=== PATIENT | male | born 1985 | race African-American/Black ===

== ENCOUNTER 2019-02-17 11:18 | Observation (INO) | payer OTHER, SELFPAY ==
[~2019-02-17] VITALS: Ht 162.6 cm; Wt 54.5 kg
[2019-02-17 11:59] LABS: BASO % 0.3 % (0.0-1.0); HEMATOCRIT 47.6 % (42.0-52.0); HEMOGLOBIN 16.5 g/dl (13.5-17.5); LYMPH # 0.9 10^3/uL (1.5-4.5); LYMPH % 7.8 % (24.0-44.0); MEAN CORPUSCULAR HEMOGLOBIN 28.5 pg (27.0-33.0); MEAN CORPUSCULAR HGB CONC 34.7 g/dl (32.0-36.5); MEAN CORPUSCULAR VOLUME 82.4 fl (80.0-96.0); MONO # 0.8 10^3/uL (0.0-0.8); MONO % 7.2 % (0.0-5.0); NEUTROPHILS # 9.8 10^3/uL (1.8-7.7); NEUTROPHILS % 84.4 % (36.0-66.0); PLATELET COUNT, AUTOMATED 170 10^3/uL (150-450); RED BLOOD COUNT 5.78 10^6/uL (4.30-6.10); WHITE BLOOD COUNT 11.6 10^3/uL (4.0-10.0)
[2019-02-17 12:32] LABS: BLOOD UREA NITROGEN 25 MG/DL (7-18); CALCIUM LEVEL 9.3 MG/DL (8.5-10.1); CARBON DIOXIDE LEVEL 23 MEQ/L (21-32); CHLORIDE LEVEL 103 MEQ/L (98-107); CREATININE FOR GFR 1.09 MG/DL (0.70-1.30); GLOMERULAR FILTRATION RATE > 60.0 (>60); GLUCOSE, FASTING 76 MG/DL (70-100); POTASSIUM SERUM 4.8 MEQ/L (3.5-5.1); SODIUM LEVEL 138 MEQ/L (136-145); THYROID STIMULATING HORMONE < 0.005 uIU/ML (0.358-3.740)
[2019-02-17] MEDS ORDERED: NS 1,000 ML IV ONE ×2 (13:15→14:45)
[2019-02-17 14:13] LABS: ALBUMIN 4.3 GM/DL (3.2-5.2); ALT/SGPT 57 U/L (12-78); BILIRUBIN,DIRECT < 0.1 MG/DL (0.0-0.2); BILIRUBIN,TOTAL 0.6 MG/DL (0.2-1.0); CK-MB VALUE MASS 9.6 NG/ML (<3.6); CPK CREATINE PHOSPHOKINASE 1308 U/L (39-308); MB/CK RELATIVE INDEX 0.73 (< OR =4); TOTAL PROTEIN 7.1 GM/DL (6.4-8.2); TROPONIN I 0.37 NG/ML (< 0.10)
--- NOTE | 2019-02-17 16:22 | HPEPDOC ---
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 He was on a long rome today sweating profusely and he at the end of September he began after he stopped began having se cat cramps in his bilateral legs. He climbed into the truck and while doing so began having cramping in his arm as well. While sitting in the truck continued to begin to feel clammy and lightheaded unwell at which point he laid flat in the truck. The patient denies any associated chest pressure shortness of breath. He tells me that he had difficulty staying awake and that his peers were keeping him aroused and lasted approximately 1-2 minutes before he began to feel back to his normal self. His cramping did pass. He tells me he had a similar episode in August 2014 while doing crawls for 3 days in a row, at that time he had a nelsy syncopal episode and was told he had rhabdomyolysis as well. He was never told any other reason why he passed out or further details to the reason for his hospitalization near [place].. Otherwise patient denies weight loss, hair loss, headache, visual changes, chest pain, shortness of breath, cough, vomiting, diarrhea, abdominal pain, worsening arthritis, change in mood. PAST MEDICAL HISTORY: 1. One syncopal episode in the past as outlined above . HOME MEDICATIONS: Please see below. ALLERGIES: Please see below PAST SURGICAL HISTORY: None. SOCIAL HISTORY: Lives with: Alone, Employment: Mailman active duty, Tobacco use: Denies. ETOH: Rare last drink 2 weeks ago, Illicit drug use: Denies, Tattoos done unprofessionally: Denies, CODE STATUS: Full code FAMILY HISTORY:Reviewed and noncontributory no family history of sudden cardiac patient is unaware of any significant family medical history of illness in his parents or siblings REVIEW OF SYSTEMS: 10 systems reviewed and negative other than HPI PHYSICAL EXAMINATION: VITAL SIGNS: Temperature 97.2, pulse 71, respiratory rate 18, blood pressure 115/68, pulse oximetry 97 % on room air. GENERAL: Pleasant very slim young man sitting up in bed awake alert oriented speaking in complete sentences no acute distress HEENT: Mildly dry mucous membranes no elevation and CVP CARDIOVASCULAR: S1 S2 regular no additional heart sounds appreciated. He does not appear to be tachycardic RESPIRATORY: Clear to auscultation bilaterally. ABDOMINAL: Bowel sounds present abdomen soft and nontender even to deep palpation EXTREMITIES: No clubbing cyanosis or edema he is muscular but very slim and somewhat wasted NEUROLOGICAL: Spontaneously moves all 4 extremities cranial 2 through 12 grossly intact no gross focal deficits appreciated PSYCHOLOGICAL: Appropriate LABORATORY DATA: See below. MICROBIOLOGY: Please see below. IMAGING: None EKG: Normal sinus rhythm, possibly some early repolarization no concerning ST changes ASSESSMENT & PLAN: This is a 33-year-old man with in episode of near syncope. PROBLEMS: 1. Near syncope: Appears to be directly related to his extreme physical exertion during his September as well as cramping muscles. I'll check an elective lites continue with IV fluid rehydration and admitted to remote telemetry for monitoring. We will check orthostatics. He has a very mild elevation in his CK my concern for rhabdomyolysis is quite low we will trend his CK in the morning. 2. Abnormal troponin: The etiology is not immediately clear he does not have chest pain or pressure symptoms, he does not have concerning EKG changes. However he is had 2 episodes of syncope or near syncope with exertion I will order an echocardiogram repeat an EKG cycle his troponin in this area and. 3. Abnormal AST: Could potentially be related to his elevated CK we'll recheck in the a.m. and as a mild elevation 4. Possible hyperthyroidism: I will recheck a stat drawn sure this is not a lab error he is certainly quite slim he is not tachycardic or appear to be overtly exophthalmic. We'll check a free T3-T4 as well and decide further workup based on results 5. Leukocytosis: Likely reactive recheck in a.m. DVT PROPHYLAXIS: Compression stockings DISPOSITION: Admitted observation status with telemetry Vital Signs Vital Signs Date Time Temp Pulse Resp B/P (MAP) Pulse Ox O2 Delivery O2 Flow Rate FiO2 02/17/19 15:03 96 18 100 Room Air 02/17/19 15:00 119/75 (90) 02/17/19 11:22 97.2 Laboratory Data Labs 24H Laboratory Tests 2 02/17/19 11:48: Immature Granulocyte % (Auto) 0.3, White Blood Count 11.6H, Red Blood Count 5.78, Hemoglobin 16.5, Hematocrit 47.6, Mean Corpuscular Volume 82.4, Mean Corpuscular Hemoglobin 28.5, Mean Corpuscular Hemoglobin Concent 34.7, Red Cell Distribution Width 12.0, Platelet Count 170, Neutrophils (%) (Auto) 84.4H, Lymphocytes (%) (Auto) 7.8L, Monocytes (%) (Auto) 7.2H, Eosinophils (%) (Auto) 0.0, Basophils (%) (Auto) 0.3, Neutrophils # (Auto) 9.8H, Lymphocytes # (Auto) 0.9L, Monocytes # (Auto) 0.8, Eosinophils # (Auto) 0.0, Basophils # (Auto) 0.0, Nucleated Red Blood Cells % (auto) 0.0, Anion Gap 12, Glomerular Filtration Rate > 60.0, Calcium Level 9.3, Aspartate Amino Transf (AST/SGOT) 71H, Alanine Aminotransferase (ALT/SGPT) 57, Alkaline Phosphatase 136H, Total Bilirubin 0.6, Direct Bilirubin < 0.1, Total Creatine Kinase 1308H, Creatine Kinase MB 9.6H, Creatine Kinase MB Relative Index 0.73, Troponin I 0.37H, Total Protein 7.1, Albumin 4.3, Albumin/Globulin Ratio 1.54, Thyroid Stimulating Hormone (TSH) < 0.005L 02/17/19 12:01: Bedside Glucose (Misc Panel) 82 CBC/BMP Laboratory Tests 02/17/19 11:48 Red Blood Count 5.78, Mean Corpuscular Volume 82.4, Mean Corpuscular Hemoglobin 28.5, Mean Corpuscular Hemoglobin Concent 34.7, Red Cell Distribution Width 12.0, Neutrophils (%) (Auto) 84.4 H, Lymphocytes (%) (Auto) 7.8 L, Monocytes (%) (Auto) 7.2 H, Eosinophils (%) (Auto) 0.0, Basophils (%) (Auto) 0.3, Neutrophils # (Auto) 9.8 H, Lymphocytes # (Auto) 0.9 L, Monocytes # (Auto) 0.8, Eosinophils # (Auto) 0.0, Basophils # (Auto) 0.0 Home Medications No Active Prescriptions or Reported Meds Allergies Coded Allergies: No Known Allergies (Verified Allergy, Unknown, 02/17/19) A-FIB/CHADSVASC A-FIB History Current/History of A-Fib/PAF?: No CLAUDIA OROZCO MD Feb 17, 2019 16:22
[2019-02-17 16:30] VITALS: BP 133/61
[2019-02-17] MEDS ORDERED: ACETAMINOPHEN TAB 650MG DOSE (2X325MG) PO PRN (17:00)
[2019-02-17 18:16] LABS: ETHYL ALCOHOL (ETHANOL) < 0.003 % (0.000-0.010); FREE T4 1.96 NG/DL (0.76-1.46); MAGNESIUM LEVEL 2.2 MG/DL (1.8-2.4); PHOSPHORUS LEVEL 3.4 MG/DL (2.5-4.9); THYROID STIMULATING HORMONE < 0.005 uIU/ML (0.358-3.740); TROPONIN I 0.58 NG/ML (< 0.10)
--- NOTE | 2019-02-17 21:29 | ECGEPIP ---
[facility] - ED Test Date: 2019-02-17 Pat Name: DEWEY CÁRDENAS Department: Room: - Gender: Male Shank Rander: : 1985 Requested By: Antione Bernard Order Number: [id number] Reading MD: Kia Long Measurements Intervals [place] Rate: 77 P: 70 [place]: 174 QRS: 86 QRSD: 89 T: 68 QT: 376 QTc: 426 Interpretive Statements SINUS RHYTHM NONSPECIFIC ST ELEVATION, CLINICAL CORRELATION NO PRIOR Electronically Signed on 02-17-2019 21:29:01 EDT by Kia Long
[2019-02-17 22:00] VITALS: BP_SYST 110; BP_SYST 118; BP_SYST 123; BP_SYST 128; BP_DIAS 58; BP_DIAS 60; BP_DIAS 64
[2019-02-18 06:00] VITALS: BP_SYST 109; BP_SYST 110; BP_SYST 113; BP_SYST 118; BP_DIAS 58; BP_DIAS 66; BP_DIAS 67; BP_DIAS 89
[2019-02-18 06:27] LABS: HEMATOCRIT 42.5 % (42.0-52.0); HEMOGLOBIN 14.7 g/dl (13.5-17.5); MEAN CORPUSCULAR HEMOGLOBIN 28.2 pg (27.0-33.0); MEAN CORPUSCULAR HGB CONC 34.6 g/dl (32.0-36.5); MEAN CORPUSCULAR VOLUME 81.6 fl (80.0-96.0); PLATELET COUNT, AUTOMATED 166 10^3/uL (150-450); RED BLOOD COUNT 5.21 10^6/uL (4.30-6.10)
[2019-02-18 07:14] LABS: ALBUMIN 3.4 GM/DL (3.2-5.2); ALT/SGPT 50 U/L (12-78); BILIRUBIN,DIRECT 0.2 MG/DL (0.0-0.2); BILIRUBIN,TOTAL 0.6 MG/DL (0.2-1.0); BLOOD UREA NITROGEN 19 MG/DL (7-18); CALCIUM LEVEL 8.4 MG/DL (8.5-10.1); CARBON DIOXIDE LEVEL 26 MEQ/L (21-32); CHLORIDE LEVEL 113 MEQ/L (98-107); CPK CREATINE PHOSPHOKINASE 2310 U/L (39-308); CREATININE FOR GFR 0.68 MG/DL (0.70-1.30); GLOMERULAR FILTRATION RATE > 60.0 (>60); GLUCOSE, FASTING 89 MG/DL (70-100); POTASSIUM SERUM 3.9 MEQ/L (3.5-5.1); SODIUM LEVEL 144 MEQ/L (136-145); TROPONIN I 0.39 NG/ML (< 0.10)
--- NOTE | 2019-02-18 07:55 | ECGEPIP ---
[facility] Test Date: 2019-02-17 Pat Name: DEWEY CÁRDENAS Department: Room: [place] [address] Gender: Male [employer]: ES : 1985 Requested By: CLAUDIA OROZCO Order Number: [id number] Reading MD: Oscar Hurd Measurements Intervals [place] Rate: 82 P: 53 ND: 152 QRS: 89 QRSD: 88 T: 69 QT: 365 QTc: 428 Interpretive Statements SINUS RHYTHM NO CHANGE COMPARED TO 11:55 SAME DAY Electronically Signed on 02-18-2019 7:54:42 EDT by Oscar Hurd
--- NOTE | 2019-02-18 08:10 | ECHO ---
DATE OF STUDY: 02/17/2019 REFERRING PHYSICIAN: Dr. Lillian Barron INDICATION: Syncope. HEIGHT: 162 cm. WEIGHT: 55 kg. DIMENSIONS: IVS: 1.1 LV: 4.2 LVPW: 0.9 LA: 31. Aorta: 2.9 IVC: 1.7 Mitral E wave velocity: 110 A wave: 73 E prime septal: 11 E prime lateral: 18.5 FINDINGS: The study is of excellent technical quality. The patient is in sinus rhythm with narrow QRS complex. Left ventricle is of normal size and systolic function with estimated left ventricular ejection fraction (LVEF) around 65%. No segmental wall motion abnormalities are appreciated. Right ventricle is also normal size and systolic function. Both atria appear normal. All four cardiac valves were well seen and appear normal. No pericardial effusion is noted. Inferior vena cava is of normal size and appropriately collapses with respiration. Aortic root, aortic arch and visualized segment of abdominal aorta all appear normal. Doppler interrogation reveals no aortic stenosis or insufficiency. There is also functionally competent mitral and pulmonic valve. There is trace tricuspid insufficiency. Calculated pulmonary artery pressure is on upper limits of normal values or possibly even mildly elevated. Mitral inflow pattern and tissue Doppler imaging of mitral annulus reveal normal diastolic function of left ventricle. CONCLUSIONS: 1. Study is of excellent technical quality. 2. Normal LV size with normal LV systolic and diastolic function. 3. No significant valvular disease. 4. Normal central venous pressure. 5. Normal or possibly minimally elevated pulmonary artery pressure. COMMENT: Subacute bacterial endocarditis (SBE) prophylaxis is not recommended. Essentially normal echocardiogram. No findings to explain syncopal event.
[2019-02-18 14:08] VITALS: BP_SYST 116; BP_SYST 117; BP_SYST 124; BP_DIAS 59; BP_DIAS 71; BP_DIAS 72
--- NOTE | 2019-02-18 17:16 | IPNPDOC ---
Date Seen The patient was seen on 02/18/19. Progress Note SUBJECTIVE: Patient is a 33-year-old man with in episode of near syncope. She was seen and examined this morning at bedside. He has no complaints. States the cramping in his lower extremities have resolved. He is ambulating well around the room with no problems. Urine output has been adequate. He's noticed that the color has improved to more yellow and clear in color. He is tolerating his meals well. He has no complaints this morning. He denies having any thyroid disease in his family. Continues to deny chest pain, shortness of breath, trouble breathing, diarrhea, abdominal pain, nausea, vomiting, or worsening muscle weakness. OBJECTIVE PHYSICAL EXAMINATION: VITAL SIGNS: Please see below. GENERAL: 38 year old Pleasant very slim young man sitting up in bed awake alert oriented speaking in complete sentences no acute distress HEENT: moist mucous membranes NO JVD CARDIOVASCULAR: S1 S2 regular no additional heart sounds appreciated. RESPIRATORY: Clear to auscultation bilaterally. ABDOMINAL: Bowel sounds present abdomen soft and nontender EXTREMITIES: No clubbing cyanosis or edema he is muscular but very slim NEUROLOGICAL: no gross focal deficits appreciated PSYCHOLOGICAL: Appropriate LABORATORY DATA, IMAGING STUDIES, MICROBIOLOGY: Please see below. Echocardiogram: 02/17/2019 - Oscar Hurd MD CONCLUSIONS: 1. Study is of excellent technical quality. 2. Normal LV size with normal LV systolic and diastolic function. 3. No significant valvular disease. 4. Normal central venous pressure. 5. Normal or possibly minimally elevated pulmonary artery pressure. DVT prophylaxis ordered?: YES ASSESSMENT AND PLAN: This is a 33-year-old man with in episode of near syncope. PROBLEMS Elevated Creatine Kinase 2/2 related to extreme physical exertion during his September -Status post 3 L IV fluids -LE cramped resolved -encouraged good PO intake -trend CK, Hyperthyroidism -TSH<0.005, -not tachycardic or appear to be overtly exophthalmic -thyroid uptake scan ordered in the AM Near syncope: -2/2 related to extreme physical exertion during his September -orthostatics negative -Status post 3 L IV fluids Abnormal troponin -no have concerning EKG changes. -2 episodes of syncope or near syncope with exertion -echocardiogram- wNL Abnormal AST -Could potentially be related to his elevated CK -downtrending -monitor in the AM Reactive Leukocytosis - resolved DVT PROPHYLAXIS: Compression stockings DISPOSITION: pending radiouptake scan, possible DC in 24-48 hours VS, I&O, 24H, [place]is Vital Signs/I&O Vital Signs Date Time Temp Pulse Resp B/P (MAP) Pulse Ox O2 Delivery O2 Flow Rate FiO2 02/18/19 14:08 72 116/59 (78) 80 117/71 (86) 89 124/72 (89) 02/18/19 08:00 16 02/18/19 06:00 97.6 100 02/17/19 16:09 Room Air I&O- Last 24 Hours up to 6 AM 02/18/19 06:00 Intake Total 3750 ml Balance 3750 ml Laboratory Data 24H LABS Laboratory Tests 2 02/17/19 17:11: Phosphorus Level 3.4, Magnesium Level 2.2, Troponin I 0.58#H, Thyroid Stimulating Hormone (TSH) < 0.005L, Free Thyroxine 1.96H, Free Triiodothyronine 6.0H, Ethyl Alcohol Level < 0.003 02/18/19 05:53: Troponin I 0.39#H, Nucleated Red Blood Cells % (auto) 0.0, Anion Gap 5L, Glomeru lar Filtration Rate > 60.0, Calcium Level 8.4L, Aspartate Amino Transf (AST/SGOT) 55H, Alanine Aminotransferase (ALT/SGPT) 50, Alkaline Phosphatase 113, Total Bilirubin 0.6, Direct Bilirubin 0.2, Total Creatine Kinase 2310#H, Total Protein 6.0L, Albumin 3.4#, Albumin/Globulin Ratio 1.31 CBC/BMP Laboratory Tests 02/18/19 05:53 Red Blood Count 5.21, Mean Corpuscular Volume 81.6, Mean Corpuscular Hemoglobin 28.2, Mean Corpuscular Hemoglobin Concent 34.6, Red Cell Distribution Width 12.3 EMI CORTEZ DO Feb 18, 2019 17:16
[2019-02-18 22:00] VITALS: BP 140/60
[2019-02-19 06:00] VITALS: BP 121/68
[2019-02-19 06:26] LABS: MEAN CORPUSCULAR HEMOGLOBIN 28.6 pg (27.0-33.0); MEAN CORPUSCULAR HGB CONC 34.9 g/dl (32.0-36.5); MEAN CORPUSCULAR VOLUME 82.1 fl (80.0-96.0); PLATELET COUNT, AUTOMATED 150 10^3/uL (150-450); RED BLOOD COUNT 5.24 10^6/uL (4.30-6.10); WHITE BLOOD COUNT 4.5 10^3/uL (4.0-10.0)
[2019-02-19 06:55] LABS: ALBUMIN 3.3 GM/DL (3.2-5.2); ALT/SGPT 65 U/L (12-78); BILIRUBIN,DIRECT 0.2 MG/DL (0.0-0.2); BILIRUBIN,TOTAL 0.6 MG/DL (0.2-1.0); BLOOD UREA NITROGEN 16 MG/DL (7-18); CALCIUM LEVEL 8.7 MG/DL (8.5-10.1); CARBON DIOXIDE LEVEL 26 MEQ/L (21-32); CHLORIDE LEVEL 111 MEQ/L (98-107); GLOMERULAR FILTRATION RATE > 60.0 (>60); GLUCOSE, FASTING 92 MG/DL (70-100); POTASSIUM SERUM 3.9 MEQ/L (3.5-5.1); SODIUM LEVEL 143 MEQ/L (136-145); TOTAL PROTEIN 6.3 GM/DL (6.4-8.2)
[2019-02-19 14:00] VITALS: BP 124/67
--- NOTE | 2019-02-19 15:42 | IPNPDOC ---
Date Seen The patient was seen on 02/19/19. Progress Note SUBJECTIVE: Patient is a 33-year-old man with in episode of near syncope. She was seen and examined this morning at bedside. He has no complaints. States the cramping in his lower extremities have resolved. He is ambulating well around the room with no problems. Urine output and he needs to be adequate. this am, took the medication for thyroid scan which will be done tomorrow am. Continues to deny chest pain, shortness of breath, trouble breathing, diarrhea, abdominal pain, nausea, vomiting, or worsening muscle weakness. OBJECTIVE PHYSICAL EXAMINATION: VITAL SIGNS: Please see below. GENERAL: 33 year old Pleasant very slim young man sitting up in bed awake alert oriented speaking in complete sentences no acute distress HEENT: moist mucous membranes NO JVD CARDIOVASCULAR: S1 S2 regular no additional heart sounds appreciated. RESPIRATORY: Clear to auscultation bilaterally. ABDOMINAL: Bowel sounds present abdomen soft and nontender EXTREMITIES: No clubbing cyanosis or edema he is muscular but very slim NEUROLOGICAL: no gross focal deficits appreciated PSYCHOLOGICAL: Appropriate LABORATORY DATA, IMAGING STUDIES, MICROBIOLOGY: Please see below. Echocardiogram: 02/17/2019 - Oscar Hurd MD CONCLUSIONS: 1. Study is of excellent technical quality. 2. Normal LV size with normal LV systolic and diastolic function. 3. No significant valvular disease. 4. Normal central venous pressure. 5. Normal or possibly minimally elevated pulmonary artery pressure. DVT prophylaxis ordered?: YES ASSESSMENT AND PLAN: This is a 33-year-old man with in episode of near syncope. PROBLEMS Elevated Creatine Kinase 2/2 related to extreme physical exertion during his September -Status post 3 L IV fluids -LE cramped resolved -encouraged good PO intake Hyperthyroidism -TSH<0.005, -not tachycardic or appear to be overtly exophthalmic -thyroid uptake scan in the AM Near syncope: -2/2 related to extreme physical exertion during his September -orthostatics negative -Status post 3 L IV fluids Abnormal troponin -no have concerning EKG changes. -2 episodes of syncope or near syncope with exertion -echocardiogram- wNL Abnormal AST -Could potentially be related to his elevated CK / rhabdomyolysis -downtrending -monitor in the AM Reactive Leukocytosis - resolved DVT PROPHYLAXIS: Compression stockings DISPOSITION: pending radiouptake scan, possible DC in 24-48 hours VS, I&O, 24H, Fishbone Vital Signs/I&O Vital Signs Date Time Temp Pulse Resp B/P (MAP) Pulse Ox O2 Delivery O2 Flow Rate FiO2 02/19/19 14:00 98.0 78 18 124/67 (86) 99 02/17/19 16:09 Room Air I&O- Last 24 Hours up to 6 AM 02/19/19 06:00 Intake Total 1560 ml Output Total 0 ml Balance 1560 ml Laboratory Data 24H LABS Laboratory Tests 2 02/19/19 05:49: Nucleated Red Blood Cells % (auto) 0.0, Anion Gap 6L, Glomerular Filtration Rate > 60.0, Calcium Level 8.7, Aspartate Amino Transf (AST/SGOT) 52H, Alanine Aminotransferase (ALT/SGPT) 65, Alkaline Phosphatase 111, Total Bilirubin 0.6, Direct Bilirubin 0.2, Total Protein 6.3L, Albumin 3.3, Albumin/Globulin Ratio 1.10 CBC/BMP Laboratory Tests 02/19/19 05:49 Red Blood Count 5.24, Mean Corpuscular Volume 82.1, Mean Corpuscular Hemoglobin 28.6, Mean Corpuscular Hemoglobin Concent 34.9, Red Cell Distribution Width 12.1 GME ATTESTATION GME ATTESTATION My faculty preceptor for this patient encounter was physically present during t he encounter and was fully available. All aspects of the patient interview, examination, medical decision making process, and medical care plan development were reviewed and approved by the faculty preceptor. The faculty preceptor is aware and concurs with the plan as stated in the body of this note and will attest to such by his/her cosignature. ATTENDING NOTE I, Ioana Freed, have independently examined this patient and performed my own physical exam, as well as reviewed the documentation and edited where necessary. I have discussed in detail with the resident / student the findings and plan of treatment as documented by the resident / student and edited their note. I agree with their findings and treatment plan and have edited their documentation. I will continue to follow the patient during this hospital stay. EMI CORTEZ DO Feb 19, 2019 15:42 IOANA FREED MD Feb 19, 2019 16:36
[2019-02-19 22:00] VITALS: BP 129/68
[2019-02-20 06:00] VITALS: BP 133/83
[2019-02-20 06:19] LABS: HEMATOCRIT 45.4 % (42.0-52.0); HEMOGLOBIN 15.8 g/dl (13.5-17.5); MEAN CORPUSCULAR HEMOGLOBIN 28.3 pg (27.0-33.0); MEAN CORPUSCULAR HGB CONC 34.8 g/dl (32.0-36.5); MEAN CORPUSCULAR VOLUME 81.2 fl (80.0-96.0); PLATELET COUNT, AUTOMATED 169 10^3/uL (150-450); RED BLOOD COUNT 5.59 10^6/uL (4.30-6.10); WHITE BLOOD COUNT 5.1 10^3/uL (4.0-10.0)
[2019-02-20 06:43] LABS: BLOOD UREA NITROGEN 13 MG/DL (7-18); CALCIUM LEVEL 8.8 MG/DL (8.5-10.1); CARBON DIOXIDE LEVEL 26 MEQ/L (21-32); CHLORIDE LEVEL 111 MEQ/L (98-107); CREATININE FOR GFR 0.73 MG/DL (0.70-1.30); GLOMERULAR FILTRATION RATE > 60.0 (>60); GLUCOSE, FASTING 95 MG/DL (70-100); SODIUM LEVEL 142 MEQ/L (136-145)
--- NOTE | 2019-02-20 08:35 | REP ---
Radionuclide thyroid scan and uptake: There are no comparison studies. There is homogeneous uptake throughout both right and left lobes of the thyroid. The right lobe measures 5.4 cm craniocaudad and the left lobe measures 5.0 cm craniocaudad. The right and left lobes are enlarged. There are no focal hot or cold zones. Thyroid uptake: The 24 uptake is 50.28%. Normal 24 uptake is 25% - 35%. Impression: Increased diffuse thyroid uptake. No hot or cold zones. Enlarged right and left lobes. Findings are compatible with Graves disease. Electronically Signed by Pratik Sweet MD 02/20/2019 08:27 A
[2019-02-20 09:34] LABS: CPK CREATINE PHOSPHOKINASE 898 U/L (39-308)
[2019-02-20] MEDS ORDERED: PROP60TA14 PO (11:10)
--- NOTE | 2019-02-20 20:24 | DS.PDOC ---
Discharge Summary General Date of Admission Feb 17, 2019 at 11:19 Date of Discharge 02/20/19 Discharge Summary PROCEDURES PERFORMED DURING STAY: Radionuclide thyroid scan and uptake 02/20/19 There is homogeneous uptake throughout both right and left lobes of the thyroid. The right lobe measures 5.4 cm craniocaudad and the left lobe measures 5.0 cm craniocaudad. The right and left lobes are enlarged. There are no focal hot or cold zones. Thyroid uptake: The 24 uptake is 50.28%. Normal 24 uptake is 25% - 35%. Impression: Increased diffuse thyroid uptake. No hot or cold zones. Enlarged right and left lobes. Findings are compatible with Graves disease. ADMITTING DIAGNOSES: Near syncope Abnormal troponin Abnormal AST Possible hyperthyroidism Leukocytosis DISCHARGE DIAGNOSES: Graves Disease Rhabdomyolysis Near Syncope Abnormal AST Reactive Leukocytosis Abnormal Troponin COMPLICATIONS/CHIEF COMPLAINT: Near Syncope. 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 He was on a long rome today sweating profusely and he at the end of September he began after he stopped began having severe cramps in his bilateral legs. He climbed into the truck and while doing so began having cramping in his arm as well. While sitting in the truck continued to begin to feel clammy and lightheaded unwell at which point he laid flat in the truck. The patient denies any associated chest pressure shortness of breath. He tells me that he had difficulty staying awake and that his peers were keeping him aroused and lasted approximately 1-2 minutes before he began to feel back to his normal self. His cramping did pass. He tells me he had a similar episode in August 2014 while doing crawls for 3 days in a row, at that time he had a nelsy syncopal episode and was told he had rhabdomyolysis as well. He was never told any other reason why he passed out or further details to the reason for his hospitalization near [place].. Otherwise patient denies weight loss, hair loss, headache, visual changes, chest pain, shortness of br eath, cough, vomiting, diarrhea, abdominal pain, worsening arthritis, change in mood. HOSPITAL COURSE: While the patient was admitted he was started on IV fluids which resolved his elevated creatine kinase and lower extremity cramping. His thyroid labs returned with suppressed TSH <0.005. A repeat was done with a reflex for free T4 and T3 levels. Which came back once again suppressed TSH at <0.005, elevated T4 at 1.96 and elevated T3 at 6.H. A radio-uptake scan was done as result which confirmed diffuse uptake throughout the thyroid which was consistent with Graves disease. The patient continued to be asymptomatic throughout the admission. There was no complaint of palpations, tremors, or vision changes. Telemetry recorded on palpitation as well. On the day of discharge the patient was advised to follow up with his PCP, as soon as he get home in [facility] and to establish care with a loan examiner for further treatment plan. He was given as needed propranolol to take if he has palpitation. He was also advised to avoid strenuous activity and heavy lifting till he establish with an loan examiner. He was agreeable to the all the plans stated to him today. DISCHARGE MEDICATIONS: Please see below. ALLERGIES: Please see below. PHYSICAL EXAMINATION ON DISCHARGE: VITAL SIGNS: Please see below. GENERAL: 33 year old Pleasant very slim young man sitting up in bed awake alert oriented speaking in complete sentences no acute distress HEENT: moist mucous membranes NO JVD No exophthalmic eyes CARDIOVASCULAR: S1 S2 regular no additional heart sounds appreciated. RESPIRATORY: Clear to auscultation bilaterally. ABDOMINAL: Bowel sounds present abdomen soft and nontender EXTREMITIES: No clubbing cyanosis or edema he is muscular but very slim NEUROLOGICAL: no gross focal deficits appreciated no tremors PSYCHOLOGICAL: Appropriate LABORATORY DATA: Please see below. IMAGING: Radionuclide thyroid scan and uptake 02/20/19 There is homogeneous uptake throughout both right and left lobes of the thyroid. The right lobe measures 5.4 cm craniocaudad and the left lobe measures 5.0 cm craniocaudad. The right and left lobes are enlarged. There are no focal hot or cold zones. Thyroid uptake: The 24 uptake is 50.28%. Normal 24 uptake is 25% - 35%. Impression: Increased diffuse thyroid uptake. No hot or cold zones. Enlarged right and left lobes. Findings are compatible with Graves disease. PROGNOSIS: Fair ACTIVITY: Avoid heavy lifting and strenuous exercise till established with endocrinology DIET: Regular DISPOSITION: 01 Home, Self-Care. DISCHARGE INSTRUCTIONS: 1. 1. f.u. with pcp in 7-10 days. 2. Establish care with endocrinology for treatment for Grave's disease 3. Avoid heavy lifting and strenuous exercise till established with endocrinology 3. client application support specialist propranolol from the pharmacy to use as needed for palpitation. 4. if symptoms return or worsen, or if you experience any problems, please return to the ER. DISCHARGE CONDITION: Stable. TIME SPENT ON DISCHARGE: Greater than 35 minutes. Vital Signs/I&Os Vital Signs Date Time Temp Pulse Resp B/P (MAP) Pulse Ox O2 Delivery O2 Flow Rate FiO2 02/20/19 06:00 97.2 75 18 133/83 (100) 99 02/17/19 16:09 Room Air I&O- Last 24 Hours up to 6 AM 02/20/19 05:59 Intake Total 1390 ml Output Total 0 ml Balance 1390 ml Laboratory Data Labs 24H Laboratory Tests 2 02/20/19 05:42: Nucleated Red Blood Cells % (auto) 0.0, Anion Gap 5L, Glomerular Filtration Rate > 60.0, Blood Urea Nitrogen 13, Creatinine 0.73, Sodium Level 142, Potassium Level 4.0, Chloride Level 111H, Carbon Dioxide Level 26, Calcium Level 8.8, Total Creatine Kinase 898H CBC/BMP Laboratory Tests 02/20/19 05:42 Red Blood Count 5.59, Mean Corpuscular Volume 81.2, Mean Corpuscular Hemoglobin 28.3, Mean Corpuscular Hemoglobin Concent 34.8, Red Cell Distribution Width 11.9, Calcium Level 8.8 Discharge Medications Scheduled PRN Propranolol Hcl (Propranolol HCl) 60 Mg Tablet, 1 TAB PO BIDP PRN for SEE LABEL COMMENTS take as needed up to twice a day for palpitation Allergies Coded Allergies: No Known Allergies (Verified Allergy, Unknown, 02/17/19) GME ATTESTATION GME ATTESTATION My faculty preceptor for this patient encounter was physically present during the encounter and was fully available. All aspects of the patient interview, examination, medical decision making process, and medical care plan development were reviewed and approved by the faculty preceptor. The faculty preceptor is aware and concurs with the plan as stated in the body of this note and will attest to such by his/her cosignature. ATTENDING NOTE I, Ioana Freed, have independently examined this patient and performed my own p hysical exam, as well as reviewed the documentation and edited where necessary. I have discussed in detail with the resident / student the findings and plan of treatment as documented by the resident / student and edited their note. I agree with their findings and treatment plan and have edited their documentation. I will continue to follow the patient during this hospital stay. EMI CORTEZ DO Feb 20, 2019 20:24 IOANA FREED MD Feb 21, 2019 07:58
== END 2019-02-20 12:30 | disposition home or self-care (01) ==
LOC: M ED 11:18 → EDBD 11:18 → M ED INP 11:19 → M MSPAV 16:34
PROVIDERS: ADMIT Internal Medicine; ATTEND Internal Medicine
DX: E05.90 Thyrotoxicosis, unspecified without thyrotoxic crisis or storm (principal); M62.82 Rhabdomyolysis; R55 Syncope and collapse; R94.5 Abnormal results of liver function studies; D72.829 Elevated white blood cell count, unspecified; R79.89 Other specified abnormal findings of blood chemistry; Z79.899 Other long term (current) drug therapy
CPT/HCPCS: 36415; 78012; 80048; 80076; 82550; 82553; 83735; 84100; 84439; 84443; 84481; 84484; 85025; 85027; 93005; 93041; 93306; 94760; 96360; 96361; 99285; A9516; G0480